=== PATIENT | male | born 1945 | race Caucasian/White ===

== ENCOUNTER 2024-06-26 08:29 | Day surgery (SDC) | payer BC, MEDICARE ==
[~2024-06-26] VITALS: Ht 182.9 cm; Wt 82.5 kg
[2024-06-26] VITALS (12 sets, daily range): BP systolic 130–148; BP diastolic 55–73; PULSE 47–61; RESP 13–19; TEMP 98; O2SAT 95–100
[~2024-06-26 08:29] MED LIST: ALFU10TA47 PO; ASPI-529 PO; CLOP75TA34 PO; DUTA0.5C40 PO; GLIM1TAB57 PO; METF-900 PO; OMEG1TAB2 PO; ROSU10TA2 PO; [UNRECOGNIZED DRUG - CODE] PO
[2024-06-26 09:28] LABS: BASOPHILS % (AUTO) 0.4 % (0-1); EOSINOPHILS # (AUTO) 0.1 X10'3 (0-0.9); HEMATOCRIT 38.6 % (42.0-52.0); HEMOGLOBIN 13.4 g/dl (14.0-17.9); LYMPHOCYTES # (AUTO) 0.8 X10'3 (1.1-4.8); LYMPHOCYTES % (AUTO) 20.5 % (21-51); MEAN CORPUSCULAR HEMOGLOBIN 31.4 PG (27.0-31.0); MEAN CORPUSCULAR HGB CONC 34.7 g/dL (33.0-36.5); MEAN CORPUSCULAR VOLUME 90.3 FL (78-98); MEAN PLATELET VOLUME 6.9 FL (7.4-10.4); MONOCYTES # (AUTO) 0.3 X10'3 (0-0.9); NEUTROPHILS # (AUTO) 2.8 X10'3 (1.8-7.7); NEUTROPHILS % (AUTO) 68.1 % (42-75); PLATELET COUNT 135 X10'3 (140-440); RED BLOOD COUNT 4.27 X10'6 (4.70-6.10); RED CELL DISTRIBUTION WIDTH 14.2 % (11.5-14.5); WHITE BLOOD COUNT 4.1 X10'3 (4.5-11.0)
[2024-06-26 09:30] LABS: ALBUMIN 3.5 G/DL (3.4-5.0); ANION GAP 6 (8-16); BLOOD UREA NITROGEN 34 MG/DL (7-18); BUN/CREATININE RATIO 23.9 (10.0-20.0); CALCIUM 8.5 MG/DL (8.5-10.1); CHLORIDE 110 MMOL/L (99-107); CREATININE 1.42 MG/DL (0.60-1.10); GLUCOSE 150 MG/DL (70-104); POTASSIUM 3.6 MMOL/L (3.5-5.1); SODIUM 144 MMOL/L (135-145); TOTAL CARBON DIOXIDE 27.8 MMOL/L (24-32); eCRCL 46 ML/MIN; eGFR 48 ML/MIN
[2024-06-26 09:32] LABS: PROTHROMBIN TIME 10.3 SECONDS (9.0-12.0)
[2024-06-26] MEDS ORDERED: AMLO10TA53 PO (10:05)
[2024-06-26] MEDS ORDERED: DAPA5TAB PO (10:05)
[2024-06-26] MEDS ORDERED: LEVO100C4 PO (10:05)
[2024-06-26] MEDS ORDERED: [UNRECOGNIZED DRUG - CODE] PO (10:05)
[2024-06-26] MEDS ORDERED: LOSA100T58 PO (10:05)
[2024-06-26] MEDS ORDERED: FERR325T28 PO (10:05)
[2024-06-26] MEDS ORDERED: TERB250T89 PO (10:05)
[2024-06-26] MEDS: sodium bicarbonate 1meq/ml syr 150 ML in dextrose 5%-water 1,000 ML IV ONE (10:12)
[2024-06-26] MEDS: diphenhydrAMINE 25mg capsule PO PRN (10:12)
[2024-06-26] MEDS: normal saline 1,000 ML IV SCH (10:12)
[2024-06-26] MEDS ORDERED: LIDOcaine 1% (10mg/ml) 2ml vial ONE (10:41)
[2024-06-26] MEDS ORDERED: verapamil 2.5 mg/ml inj IV ONE (10:42)
[2024-06-26] MEDS ORDERED: iohexol 350 MG/ML 50ML vial IV ONE (10:42)
[2024-06-26] MEDS ORDERED: fentaNYL/PF 50MCG/1 ML 2ML syringe ONE (10:42)
[2024-06-26] MEDS ORDERED: midazolam 1 mg/ML 2ml injection ONE ×2 (10:42→11:34)
[2024-06-26] MEDS ORDERED: heparin 1,000unit/ml 10ml vial 10 ML ONE (10:42)
[2024-06-26] MEDS ORDERED: iohexol 350MG/ML 100ml bottle IV ONE ×2 (10:42→12:13)
[2024-06-26] MEDS ORDERED: nitroGLYCERIN 500mcg/5mL D5W 5 ML IV ONE (10:52)
[2024-06-26] MEDS ORDERED: clopidogrel 300mg tablet ONE (12:49)
[2024-06-26] MEDS ORDERED: normal saline 1000ml 1,000 ML IV SCH (14:00)
[2024-06-26] MEDS ORDERED: proCHLORperazine 10 MG/2 ml inj IV PRN (14:00)
[2024-06-26] MEDS ORDERED: ondansetron/PF 4mg/2ml inj IV PRN (14:00)
[2024-06-26] MEDS ORDERED: ACETYLCYSTEINE 200 MG/1 ML 4 ML ORAL SOLUTION PO SCH (20:00)
== END 2024-06-26 16:55 | disposition home or self-care (01) ==
LOC: SSTAY O 08:29
PROVIDERS: ATTEND Internal Medicine Cardiovascular Disease
DX: R94.30 Abnormal result of cardiovascular function study, unspecified (principal); I25.118 Atherosclerotic heart disease of native coronary artery with other forms of angina pectoris; I25.2 Old myocardial infarction; I10 Essential (primary) hypertension; E78.5 Hyperlipidemia, unspecified; E11.9 Type 2 diabetes mellitus without complications; N40.0 Benign prostatic hyperplasia without lower urinary tract symptoms; Z79.899 Other long term (current) drug therapy; Z95.5 Presence of coronary angioplasty implant and graft; Z98.890 Other specified postprocedural states; Z82.49 Family history of ischemic heart disease and other diseases of the circulatory system
CPT/HCPCS: 36415; 80048; 82948; 83735; 85025; 85610; 93005; 93458; 99152; 99153; C1874; C9600; C9601; J1644; J2003; J2250; J3010; J3490; J7030; J7070; Q0163; Q9967; A6258; A6402; A6449; C1725; C1751; C1769; C1894